=== PATIENT | male | born 1975 | race Caucasian/White ===

== ENCOUNTER 2023-02-22 09:31 | Emergency (ER) | payer OTHER, SELFPAY ==
[2023-02-22] VITALS (19 sets, daily range): BP systolic 120–148; BP diastolic 72–102; PULSE 67–94; RESP 12–26; TEMP 36.7; O2SAT 99–100
--- NOTE | ~2023-02-22 | CT_ITS ---
EXAMINATION: CT abd pelvis lumbar wo con DATE: 02/22/2023 10:34 INDICATION: Left-sided low back pain. Nausea and vomiting. TECHNIQUE: Computed tomography (CT) of the abdomen, pelvis, and lumbar spine was performed without in travenous contrast. Automated exposure control and iterative reconstruction technique were employed. The dose-length product was 608.38 mGy-cm. COMPARISON: None FINDINGS: CT ABDOMEN AND PELVIS: The visualized portions of the lung bases demonstrate mild atelectasis. No ple ural effusion. The heart size is normal. No pericardial effusion. The liver, gallbladder, spleen, chau creas, adrenal glands, and left kidney are normal. There is cortical thinning in right kidney. There is no urolithiasis. The prostate is mildly enlarged. There is diverticulosis of the colon without adalberto dence of diverticulitis. There are no dilated loops of bowel. The appendix is normal. There are no pa thologically enlarged lymph nodes. There is no free intraperitoneal fluid. CT LUMBAR SPINE: There is 3 mm retrolisthesis of L5 on S1. There is 3 degrees levocurvature of lumbar spine. Vertebral body heights are normal. There is mildly decreased disc height at all 4-L5 and mode rately decreased disc at L5-S1. The following disc levels are specifically discussed: L1-L2: The disc does not extend beyond the endplate margin. There is mild bilateral facet joint osteo arthritis. There is no neural foraminal stenosis. There is no central canal stenosis. L2-L3: There is a left foraminal extrusion. There is mild bilateral facet joint osteoarthritis. There is mild left neural foraminal stenosis. There is no central canal stenosis. L3-L4: The disc does not extend beyond the endplate margin. There is mild bilateral facet joint osteo arthritis. There is no neural foraminal stenosis. There is no central canal stenosis. L4-L5: The disc is bulging. There is mild bilateral facet joint osteoarthritis. There is mild bilater al neural foraminal stenosis. There is mild central canal stenosis. L5-S1: The disc is bulging. There is no facet joint osteoarthritis. There is mild bilateral neural fo raminal stenosis. There is no central canal stenosis. IMPRESSION: 1. No urolithiasis. 2. Moderate lower lumbar spondylosis. Reviewed, dictated and finalized at location A.
--- NOTE | 2023-02-22 10:11 | ED.BACK ---
HPI - Back Pain/Injury General Chief Complaint: Back Pain/Injury Stated Complaint: back pain Time Seen by Provider: 02/22/23 09:42 Source: patient and family Mode of arrival: EMS Limitations: no limitations History of Present Illness HPI Narrative: Patient is a 47 y/o male who presents to the ED via EMS with report of L lower back pain. 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 He developed pain throughout the day. Pain has since persisted, unable to find any relief. He has been taking ibuprofen at home. Patient developed N/V this morning which he attributes to his pain and hyperventilating. Patient does admit to being very anxious currently however he and his note he is a high strung anxious person at baseline. Patient has not taken anything for pain this morning due to the vomiting. He attempted to go to work today, but continued vomiting and states he collapsed due to the pain. EMS was then called to bring the patient here. Patient denies ever having pain like this before. Denies abdominal pain, dysuria, hematuria, incontinence, retention, saddle anesthesia, weakness. Related Data Allergies Allergy/AdvReac Type Severity Reaction Status Date / Time No Known Allergies Allergy Verified 02/22/23 09:40 Review of Systems Review of Systems: CONSTITUTIONAL: Denies fever, chills, or sweats. CARDIOVASCULAR: Denies chest pain. RESPIRATORY: Denies dyspnea. GASTROINTESTINAL: See HPI. GENITOURINARY: Denies incontinence, dysuria or hematuria. MUSCULOSKELETAL: See HPI. NEUROLOGIC: Denies headache, numbness, or weakness. PSYCHIATRIC: See HPI. All systems reviewed & are unremarkable except as noted in HPI and below PMFSH Past Medical History Medical History (Updated 02/22/23 @ 14:39 by Pavithra Hutchison PA-C) No pertinent past medical history Surgical History Surgical History (Updated 02/22/23 @ 10:49 by Pavithra Hutchison PA-C) No pertinent past surgical history Social History Social History (Updated 02/22/23 @ 10:49 by Pavithra Hutchison PA-C) Smoking status: Never smoker Exam Narrative: GENERAL: Uncomfortable appearing, well-nourished, non-toxic, in no acute distress. HEAD: Normocephalic, atraumatic. NECK: Supple. No adenopathy, no masses. RESPIRATORY: Airway patent, respirations nonlabored, borderline tachypneic/hyperventilating r/t anxiety. Clear to auscultation bilaterally, no rales, rhonchi, wheezing. No focal lung sounds. CARDIOVASCULAR: Regular rate and rhythm without murmurs, rubs, or gallops. Radial pulses 2+ and equal bilaterally. ABDOMINAL: Soft, no tenderness throughout abdomen, nondistended, no hepatosplenomegaly. Normoactive BS. MUSCULOSKELETAL: Moves all extremities. Strength/ROM intact without gross deformities. Focal TTP in L lower lumbosacral region/SI region. No significant midline lumbar spinal tenderness. Sensation intact. Negative straight leg raise on left. No CVA tenderness to percussion. SKIN: Warm, dry, normal color. No rashes. NEURO: A&O X3. Speech clear. Cranial nerves II-XII grossly intact. Steady gait. No ataxic movements. PSYCHIATRIC: Severely anxious, but appropriate insight into knowing he is anxious. Normal interaction. Course Vital Signs Vital signs: Vital Signs Temperature 98.0 F 02/22/23 09:35 Pulse Rate 71 02/22/23 09:35 Respiratory Rate 18 02/22/23 09:35 Blood Pressure 148/102 H 02/22/23 09:35 Pulse Oximetry 100 02/22/23 09:35 Oxygen Delivery Room Air 02/22/23 09:35 Temperature 98.0 F 02/22/23 09:35 Pulse Rate 94 02/22/23 13:02 Respiratory Rate 22 H 02/22/23 13:02 Blood Pressure 131/84 02/22/23 13:01 Pulse Oximetry 100 02/22/23 13:02 Oxygen Delivery Room Air 02/22/23 09:35 MDM - Back Pain/Injury MDM Narrative Medical decision making narrative: Patient presented to ED with left low back pain x2 days after picking up child [place]
--- NOTE | 2023-02-22 10:13 | ECG_ITS ---
Measurements Intervals [place] Rate: 66 P: 43 TN: 151 QRS: 45 QRSD: 105 T: 46 QT: 421 QTc: 442 Interpretive Statements SINUS RHYTHM INCOMPLETE RIGHT BUNDLE BRANCH BLOCK BASELINE ARTIFACT- I, II, AVR, AVL BORDERLINE ECG NO PREVIOUS ECG AVAILABLE FOR COMPARISON Electronically Signed On 02-22-2023 11:33:44 CDT by Genaro Aguilar D.O.
[2023-02-22 10:49] LABS: Basophils Percent Auto 0.2 % (0.2-1.2); Hematocrit 41.1 % (42.0-52.0); Hemoglobin 13.4 g/dL (14.0-18.0); Immature Granulocyte Absolute 0.02 K/mm3 (0.00-0.031); Immature Granulocyte Percent A 0.3 % (0-0.5); Lymphocytes Absolute Auto 0.56 K/mm3 (0.9-3.2); Mean Corpuscular HGB Conc 32.6 g/dl (32-36); Mean Corpuscular Hemoglobin 28.3 pg (26-34); Mean Corpuscular Volume 86.9 fl (80-100); Mean Platelet Volume 9.5 fl (7.4-10.4); Monocytes Absolute Auto 0.3 K/mm3 (0.1-0.6); Monocytes Percent Auto 4.6 % (2.6-8.5); Neutrophils Absolute Auto 5.4 K/mm3 (1.3-6.7); Neutrophils Percent Auto 85.9 % (45.5-73.1); Platelet Count Result 168 k/mm3 (150-375); Red Blood Count 4.73 M/mm3 (4.6-6.20); Red Cell Distribution Width 14.1 % (11.5-14.5); White Blood Count 6.2 K/mm3 (4.5-10.0)
[2023-02-22] MEDS: SODIUM CHLORIDE 0.9% IV 1,000 ML 999 ML IV CONT (10:49)
[2023-02-22] MEDS: KETOROLAC 30 MG/ML VIAL (*BKC) IV PUSH (10:49)
[2023-02-22] MEDS: ONDANSETRON INJ 4 MG/2 ML VIAL IV PUSH ×2 (10:49→12:39)
[2023-02-22] MEDS: diazePAM INJ (*CRX) 10 MG/2 ML SYRINGE 2 MG IV PUSH (10:50)
[2023-02-22 11:02] LABS: Albumin Level 4.3 g/dL (3.5-5.1); Alkaline Phosphatase 57 U/L (38-126); Anion Gap 9 mmol/L (8-16); Aspartate Amino Transferase 29 U/L (17-59); Bilirubin,Total 0.7 mg/dL (0.2-1.3); Blood Urea Nitrogen 11 mg/dL (9-20); Calcium 8.5 mg/dL (8.4-10.2); Carbon Dioxide 23 mmol/L (22-30); Chloride 104 mmol/L (98-107); Estimated CRCL calculation 91 ml/min; Estimated Glomerular Filt Rate > 60; Glucose 121 mg/dL (65-110); Potassium 2.9 mmol/L (3.4-5.0); Sodium 136 mmol/L (137-145)
[2023-02-22 11:08] LABS: Alanine Aminotransferase 40 U/L (6-50)
[2023-02-22] MEDS: POTASSIUM CHLORIDE 20 MEQ TABLET 40 MEQ PO (12:40)
[2023-02-22] MEDS: METOCLOPRAMIDE HCL INJ 10 MG/2 ML VIAL IV PUSH (13:25)
[2023-02-22] MEDS: POTASSIUM CHLORIDE 20 MEQ PACKET (FOR LIQUID) 40 MEQ PO (14:13)
== END 2023-02-22 14:55 | disposition home or self-care (01) ==
PROVIDERS: Emergency Provider Physician Assistant
DX: S39.012A Strain of muscle, fascia and tendon of lower back, initial encounter (principal); R11.2 Nausea with vomiting, unspecified; E87.6 Hypokalemia; I45.10 Unspecified right bundle-branch block; X50.0XXA Overexertion from strenuous movement or load, initial encounter
CPT/HCPCS: 36415; 72131; 74176; 80053; 85025; 93005; 96361; 96374; 96375; 96376; 99284; A9270; J1885; J2405; J2765; J3360; J7030